=== PATIENT | female | born 1975 | race Caucasian/White ===

== ENCOUNTER → 2021-01-09 | Outpatient (CLI) | payer OTHER | LOC: RT 16:50 | DX: R07.89 Other chest pain (principal) | CPT/HCPCS: 93005 ==

== ENCOUNTER → 2021-07-03 | Outpatient (CLI) | payer OTHER | LOC: CT 10:44 | DX: G43.119 Migraine with aura, intractable, without status migrainosus (principal); I10 Essential (primary) hypertension | CPT/HCPCS: 36415; 70470; 70482; 82565; Q9967 ==

== ENCOUNTER → 2022-04-01 | Outpatient (CLI) | payer OTHER | LOC: EMI 08:15 | DX: M25.561 Pain in right knee (principal) | CPT/HCPCS: 73721 ==